=== PATIENT | female | born 1945 | race Caucasian/White ===

== ENCOUNTER 2017-04-17 16:35 | Outpatient (CLI) | payer MEDICARE, MEDICAID ==
--- NOTE | 2017-04-17 18:26 | SJPRAD ---
AP VIEW PELVIS: 04/17/17 HISTORY: Low back pain, pain in the sacroiliac joints. COMPARISON: None available. FINDINGS: There is no fracture or dislocation seen. Dense vascular calcifications seen in the iliac arteries a s well as femoral arteries. IMPRESSION: No acute osseous abnormality. POS: ERLIN
== END 2017-04-17 16:36 | disposition home or self-care (01) ==
LOC: MWLC RAD 16:35
PROVIDERS: ATTEND Family Medicine
DX: M54.5 Low back pain (principal)

== ENCOUNTER 2017-06-12 18:49 | Inpatient (IN) | payer MEDICARE, MEDICAID ==
[2017-06-12 19:47] LABS: #Basophils 0.1 thou/uL (0.0-0.2); #Lymphocytes 1.3 thou/uL (1.20-3.40); #Monocytes 0.5 thou/uL (0.11-0.59); #Neutrophils 7.7 thou/uL (1.40-6.50); %Basophils 0.6 % (0.0-1.0); %Eosinophils 0.4 % (0.0-10.0); %Lymphocytes 13.6 % (21.0-51.0); %Monocytes 4.8 % (0.0-10.0); Mean Platelet Volume 8.2 fL (7.4-10.4); Red Blood Cell (RBC) Count 2.97 mill/uL (4.20-5.40); White Blood Cell (WBC) Count 9.5 thou/uL (4.8-10.8)
[2017-06-12 19:56] LABS: ALT (SGPT) 7 U/L (8-55); AST (SGOT) 13 U/L (5-34); Alkaline Phosphatase 100 U/L (40-150); Anion Gap 15 mmol/L (10-20); BUN (Urea Nitrogen) 24 mg/dL (9.8-20.1); Bilirubin, Total 0.3 mg/dL (0.2-1.2); Calc. Creatinine Clearance 0 mL/min (70-130); Calcium 10.2 mg/dL (7.8-10.44); Carbon Dioxide 21 mmol/L (23-31); Chloride 101 mmol/L (98-107); Estimated GFR-MDRD 78; Globulin 3.5 g/dL (2.4-3.5); Protein, Total 7.7 g/dL (6.0-8.3)
[2017-06-12 20:01] LABS: Troponin I Less than 0.010 ng/mL (< 0.028)
[2017-06-12 20:05] LABS: Elliptocytes SLIGHT = 2-5 cells (100X) (0-1/hpf); Hypochromia MODERATE=16-30 cells (100X) (0-5/hpf); Microcytosis MODERATE=15-30 cells (100X) (0-5/hpf); Ovalocytes SLIGHT = 2-5 cells (100X) (0-1/hpf); Polychromasia MODERATE = 3-4 cells (100X) (0-2/hpf); Schistocytes SLIGHT = 2-5 cells (100X) (0-1/hpf); Target Cells SLIGHT = 2-5 cells (100X) (0-1/hpf)
[2017-06-12 20:06] LABS: Anisocytosis MODERATE=16-30 cells (100X) (0-5/hpf); Tear Drops SLIGHT = 2-5 cells (100X) (0-1/hpf)
[2017-06-12 21:05] LABS: Bilirubin Negative (Negative); Blood, Urine Negative (Negative); Glucose, Urine (Dipstick) Negative (Negative); Ketone, Urine Negative (Negative); Nitrite Negative (Negative); Protein, Urine (Dipstick) Trace mg/dL (Neg-Trace); Urobilinogen 0.2 mg/dL (0.2-1.0)
[2017-06-12 21:11] LABS: Bacteria/HPF None Seen HPF (None Seen); Hyaline Casts/LPF 0-3 HYALINE CAST LPF (0-3 Hyaline); RBC/HPF 0-3 HPF (0-3); Squamous Epithelial 0-3 HPF (0-3)
--- NOTE | 2017-06-12 21:31 | RAD ---
RADIOGRAPH CHEST 1 VIEW: Date: 06/12/17 Time: 7:24 p.m. HISTORY: 71-year-old female with dyspnea. COMPARISON: 09/05/15 FINDINGS: Again noted are the sternotomy wires and multiple surgical clips overlying the left cardiac shadow an d aortic knob. Again noted is the vascular stent at the proximal aspect, including origin, of the lef t subclavian artery. On the previous study, there were prominent interstitial markings. Now, these peña ve worsened, with diffuse interstitial infiltrates, at the mid and lower lung zones. No pneumothorax. No effacement of lateral costophrenic angles. IMPRESSION: 1. Interval worsening of mild interstitial densities. This may represent noncardiogenic pulmonar y edema, but other etiologies are possible. 2. Status post coronary artery bypass graft surgery is evidence for coronary atherosclerotic dis ease. JN [] POS: KATE
[2017-06-12 21:54] LABS: Iron 19 ug/dL (50-170)
[2017-06-13] MEDS ORDERED: Ondansetron HCl/PF 4 MG/2 ML Vial IVP PRN (01:04)
[2017-06-13] MEDS ORDERED: Acetaminophen 325 MG TAB PO PRN (01:04)
--- NOTE | 2017-06-13 01:04 | PDOC.EVN ---
Event Note - Event Note Event Note: [id number] H&P Dictated 1. Acute Anemia 2. UTI 3. HTN 4. H/O CAD 5. H/O HPL plan: see orders
[2017-06-13] MEDS ORDERED: Sodium Chloride 0.9% 1,000 ML IV SCH (01:15)
[2017-06-13 01:36] LABS: #Basophils 0.1 thou/uL (0.0-0.2); #Lymphocytes 1.4 thou/uL (1.20-3.40); #Monocytes 0.4 thou/uL (0.11-0.59); #Neutrophils 6.5 thou/uL (1.40-6.50); %Basophils 1.2 % (0.0-1.0); %Eosinophils 0.3 % (0.0-10.0); %Lymphocytes 16.5 % (21.0-51.0); %Monocytes 4.8 % (0.0-10.0); Hematocrit 22.5 % (36.0-47.0); Mean Platelet Volume 8.5 fL (7.4-10.4); Red Blood Cell (RBC) Count 3.04 mill/uL (4.20-5.40); White Blood Cell (WBC) Count 8.4 thou/uL (4.8-10.8)
[2017-06-13 02:42] VITALS: BMI 17.8
--- NOTE | 2017-06-13 02:44 | HP ---
DATE OF ADMISSION: 06/13/2017 CHIEF COMPLAINT: Dyspnea, fatigue. HISTORY OF PRESENT ILLNESS: Patient is a 71-year-old female with past medical history of hypertensio n, coronary artery disease, anemia, now came to the ER complaining of dyspnea and fatigue. Patient s aid she was feeling tired last few days, dyspnea got persisted and also the fatigue persisted. Today , she started having more trouble breathing that occurs even with minimal exertion that is why she ca me to the ER. Denies any chest pain. Denies any palpitations, denies any lower extremity swelling, denies any bleeding per rectum, denies any black stools. Patient says she takes aspirin and Plavix a t home. Denies any NSAID usage. PAST MEDICAL HISTORY: As per HPI. PAST SURGICAL HISTORY: History of lymphoma, for which she got chemotherapy done and other past surgi lilian histories reviewed. SOCIAL HISTORY: Positive for smoking, denies alcohol, denies any drugs. FAMILY HISTORY: Positive for cancer. REVIEW OF SYSTEMS: Constitutional: Denies any fever, denies any chills. Eyes: Denies any vision p roblems. Ears: Denies any hearing loss. Neck: Denies any neck pain. Cardiovascular: Denies any chest pain, denies any palpations. Respiratory: Positive for dyspnea. Cranial nerve system: Denie s syncope, denies lightheadedness. Psychiatric: Denies anxiety. Integument: Denies any rash. Gen itourinary: Denies dysuria. All other review of systems are reviewed and are negative. PHYSICAL EXAMINATION: CONSTITUTIONAL/VITAL SIGNS: At the time of H&P performed, blood pressure is 113/53, pulse ox 100%, h eart rate 91. GENERAL: The patient appears tired. Anterior nares patent. NECK: Supple, no JVD. CARDIOVASCULAR: S1, S2 present. Regular rate and rhythm. Positive for murmur, no rubs, no gallops. RESPIRATORY: No wheezing, no rhonchi. GASTROINTESTINAL: Abdomen is soft, nontender, no guarding, no organomegaly, no masses felt. MUSCULOSKELETAL: No edema. CRANIAL NERVE SYSTEM: Awake, follows commands. Strength intact. Sensory intact. PSYCHIATRIC: Mood appropriate at this time. INTEGUMENTARY: No obvious rashes seen. LABORATORY DATA: At the time of H&P perform white count 9.5, hemoglobin 5.9, platelet count is 311. BMP shows sodium 133, potassium 3.7, chloride 101, CO2 is 21, BUN of 24, creatinine 0.74, serum iron 19, ferritin 8.48. UA moderate leukocyte esterase, 11-20 wbc's. ASSESSMENT AND PLAN: The patient is a 71-year-old female. 1. Acute anemia plus iron deficiency. Plan to start patient on IV iron. Plan to type and cross and transfuse 2 units of packed RBCs. Need to outpatient GI workup. We will monitor the patient closel y. 2. Urinary tract infection. Plan to start the patient on IV Rocephin 1 gram q.24 hours. Plan to se nd urine for culture and sensitivity. 3. History of hypertension. Monitor blood pressures. Continue home blood pressure medications. 4. History of coronary artery disease. Continue home medications. 5. History of hyperlipidemia. Continue statins. The case was discussed in detail with the patient.
[2017-06-13 06:36] LABS: #Basophils 0.1 thou/uL (0.0-0.2); #Monocytes 0.5 thou/uL (0.11-0.59); #Neutrophils 6.2 thou/uL (1.40-6.50); %Basophils 1.2 % (0.0-1.0); %Eosinophils 0.5 % (0.0-10.0); %Monocytes 6.5 % (0.0-10.0); Hematocrit 25.6 % (36.0-47.0); Mean Platelet Volume 8.3 fL (7.4-10.4); Red Blood Cell (RBC) Count 3.35 mill/uL (4.20-5.40); White Blood Cell (WBC) Count 7.9 thou/uL (4.8-10.8)
[2017-06-13 06:49] LABS: Anion Gap 9 mmol/L (10-20); BUN (Urea Nitrogen) 15 mg/dL (9.8-20.1); Calc. Creatinine Clearance 69 mL/min (70-130); Calcium 9.1 mg/dL (7.8-10.44); Carbon Dioxide 24 mmol/L (23-31); Chloride 108 mmol/L (98-107); Estimated GFR-MDRD Greater than 90
[2017-06-13] MEDS ORDERED: Iron Sucrose Complex 200 MG in Sodium Chloride 0.9% 250 ML 250 ML IVPB SCH (09:00)
[2017-06-13] MEDS ORDERED: Famotidine/PF 20 mg/2ml Vial SLOW IVP SCH (09:00)
--- NOTE | 2017-06-13 10:20 | PDOC.PN ---
- Subjective Encounter Start Date: 06/13/17 Encounter Start Time: 10:18 Ms. Palacios was seen today in follow-up of acute anemia. She says she feels better after the blood transfusion. She is less short of breath. she denies chest pain,she has been up walking without difficulty. - Objective MAR Reviewed: Yes Vital Signs & Weight: Vital Signs (12 hours) Temp Pulse Resp BP Pulse Ox 06/13/17 09:57 98.6 F 74 18 100 06/13/17 07:10 98.6 F 74 18 126/59 L 100 06/13/17 04:00 98.3 F 82 16 132/60 100 06/13/17 01:49 99.6 F 80 18 153/67 H 97 Weight Weight 103 lb 14.4 oz I&O: 06/12/17 06/13/17 06/14/17 06:59 06:59 06:59 Intake Total 720 Balance 720 Result Diagrams: 06/13/17 06:17 06/13/17 06:17 Phys Exam - Physical Examination HEENT: PERRLA Respiratory: no wheezing, no rales, no rhonchi, clear to auscultation bilateral Cardiovascular: RRR, no significant murmur Gastrointestinal: soft, non-tender, positive bowel sounds Musculoskeletal: no edema Dx/Plan (1) Iron deficiency anemia due to chronic blood loss Code(s): D50.0 - IRON DEFICIENCY ANEMIA SECONDARY TO BLOOD LOSS (CHRONIC) Status: Acute (2) CAD (coronary artery disease) Code(s): I25.10 - ATHSCL HEART DISEASE OF [place] CORONARY ARTERY W/O ANG PCTRS Status: Chronic Qualifiers: Coronary Disease-Associated Artery/Lesion type: [place] artery Associated angina: without angina (3) Generalized weakness Code(s): R53.1 - WEAKNESS Status: Chronic - Plan * Acute on chronic anemia due to iron deficiency. She is feeling much better after transfusion. Her stool for occult blood was negative * She is stable for discharge home and Outpatient GI evaluation, and she may need hematology evaluation as well.
[2017-06-13 11:33] VITALS: BP 145/72; TEMP 97.7
[2017-06-13 12:43] LABS: #Basophils 0.1 thou/uL (0.0-0.2); #Eosinphils 0.1 thou/uL (0.0-0.7); #Lymphocytes 1.4 thou/uL (1.20-3.40); #Monocytes 0.5 thou/uL (0.11-0.59); #Neutrophils 9.7 thou/uL (1.40-6.50); %Basophils 0.9 % (0.0-1.0); %Eosinophils 0.6 % (0.0-10.0); %Lymphocytes 11.9 % (21.0-51.0); %Monocytes 4.1 % (0.0-10.0); Hematocrit 25.8 % (36.0-47.0); Mean Platelet Volume 8.2 fL (7.4-10.4); White Blood Cell (WBC) Count 11.7 thou/uL (4.8-10.8)
--- NOTE | 2017-06-13 15:51 | DIS ---
DATE OF ADMISSION: 06/12/2017 DATE OF DISCHARGE: 06/13/2017 PRIMARY CARE PHYSICIAN: Dr. Lucas. DISCHARGE DISPOSITION: Home. PRIMARY DISCHARGE DIAGNOSES: 1. Iron deficiency anemia. 2. History of lipoma. 3. Hypertension. DISCHARGE MEDICATIONS: Include iron sulfate 325 mg twice daily, losartan/hydrochlorothiazide 50/12.5 one tablet daily, Zocor 40 mg at bedtime, and Tylenol 325 mg q.4 hours as needed. CODE STATUS: FULL CODE. ALLERGIES: No known drug allergies. HOSPITAL COURSE: Ms. Palacios is a pleasant 71-year-old female who has a history of lymphoma as well as a history of hypertension as well as coronary artery disease. She was in her usual state of healt h until several days prior to admission when she began having fatigue and shortness of breath. She w as found to have severe anemia with a hemoglobin of 5.9. She was admitted and received 2 units of pa cked red blood cells as well as IV iron. She had occult blood done, which was negative. Stool for o ccult blood was negative. Her iron level was 19 and her ferritin was 8.48. TIBC was 455. After rec eiving the blood transfusion, she was feeling much better and since her stool guaiac was negative, th en she has had a history of anemia in the past. She will be discharged home and will need outpatient follow up with GI and possibly with Hematology as well. As she may have another reason for iron def iciency anemia or possibly even a combined form of anemia as well, this was explained to the patient as well as the patient's over the telephone.
== END 2017-06-13 13:27 | disposition home or self-care (01) | DRG 812 ==
LOC: ERS 18:49 → 2SE 21:25
PROVIDERS: ADMIT Internal Medicine; ATTEND Internal Medicine
PROC: 30233N1 Transfusion of Nonautologous Red Blood Cells into Peripheral Vein, Percutaneous Approach (ICD-10-PCS; principal; 2017-06-12)
DX: D50.9 Iron deficiency anemia, unspecified (principal); N39.0 Urinary tract infection, site not specified; E78.5 Hyperlipidemia, unspecified; I25.10 Atherosclerotic heart disease of native coronary artery without angina pectoris; Z85.72 Personal history of non-Hodgkin lymphomas; Z92.21 Personal history of antineoplastic chemotherapy; Z80.9 Family history of malignant neoplasm, unspecified
CPT/HCPCS: 36415; 36430; 71010; 80048; 80053; 81003; 81015; 82274; 82553; 82728; 83540; 83550; 84484; 85025; 86850; 86900; 86901; 87086; 93005; 94760; 99406; J1756; J7050; P9016; S0028

== ENCOUNTER 2017-07-29 05:43 | Day surgery (SDC) | payer MEDICARE, MEDICAID ==
[2017-07-28 12:00] VITALS: BMI 18.4
--- NOTE | 2017-07-29 02:54 | HP ---
SHORT STAY HISTORY AND PHYSICAL DATE OF ADMISSION: 07/29/2017 HISTORY OF PRESENT ILLNESS: This is a 72-year-old female with recurrent anemia and also oc cult GI bleeding. The patient also has symptoms of anemia and was transfused. The patient has had r emoval of multiple colon polyps in the past. dysphagia. The patient has no history of hematoch ezia or melena. Her anemia is microcytic and has been recurrent. The patient comes in for EGD and a colonoscopy because of the above reason. ALLERGIES: FLU VIRUS VACCINE, which is moderate in intensity. MEDICAL ILLNESSES: 1. COPD. 2. Hypertension. 3. Diabetes mellitus. 4. Coronary artery disease, status post stenting. 5. Past history of non-Hodgkin's lymphoma. She is in remission after chemotherapy. 6. Gastric ulcer-duodenal ulcer. 7. Colon polyp. PHYSICAL EXAMINATION: GENERAL: She is a very fragile looking female, appears very comfortable. VITAL SIGNS: Her pulse is 70, blood pressure 110/70. CARDIOVASCULAR SYSTEM: First and second heart sounds normal. LUNGS: Clear to auscultation. ABDOMEN: Soft to palpate. No organomegaly. No tenderness. No masses. ADMITTING DIAGNOSES: Anemia, microcytic. Anemia is recurrent. The patient has had duodenal ulcer, gastric ulcer, and colon polyps. PLAN: EGD and colonoscopy.
--- NOTE | 2017-07-29 08:43 | OP ---
DATE OF PROCEDURE: 07/29/2017 SURGEON: Diaz Sawant M.D. OPERATIVE PROCEDURE: Esophagogastroduodenoscopy with biopsy. PREOPERATIVE DIAGNOSIS: Anemia, occult gastrointestinal bleeding. POSTOPERATIVE DIAGNOSES: 1. Severe duodenitis. 2. Antral gastritis. PROCEDURE IN DETAIL: The patient was placed on her left lateral position and was given sedation by [facility] Anesthesia Department. A Pentax video gastroscope under direct vision was passed down the orophar ynx, past the gastroesophageal junction, into the stomach and subsequently into the descending duoden um. The duodenal bulb mucosa was markedly hyperemic and erythematous indicative of duodenitis. The descending duodenum, no pathology seen. The gastric antrum, gastric body, the mucosa was hyperemic a nd edematous. No ulcerations seen. The incisura angularis, no pathology seen. Retroflexion of the scope in the stomach showed no pathology in the fundus or cardia. The esophageal mucosa appeared nor mal. The stomach was decompressed and the scope removed. DISCHARGE PLANNING: This is a 72-year-old female with recurrent anemia and occult GI bleed ing. The patient came in for an EGD and colonoscopy. The EGD showed duodenitis and gastritis. [place] noscopy showed sessile polyps over the left colon. The patient did well post procedure, and is being discharged home. DISCHARGE INSTRUCTIONS: 1. The patient was advised to call me if she develops abdominal pain, hematochezia or fever. 2. In the absence of any of the above symptoms, the patient will come back to me in 2 weeks.
--- NOTE | 2017-07-29 09:00 | OP ---
DATE OF PROCEDURE: 07/29/2017 SURGEON: Diaz Sawant M.D. OPERATIVE PROCEDURE: Colonoscopy with polypectomy, colonoscopy with biopsy. PREOPERATIVE DIAGNOSES: 1. Anemia. 2. Occult gastrointestinal bleeding. 3. History of colon polyp. POSTOPERATIVE DIAGNOSES: 1. Mild, scattered diverticular disease all through the transverse colon. 2. Sessile polyp high sigmoid colon. 3. Sessile polyp low sigmoid colon x2. 4. Hemorrhoids. 5. Edematous hyperemic sigmoid mucosa. PROCEDURE IN DETAIL: The patient was placed on her left lateral position and was given sedation by t Anesthesia Department. A rectal exam was done before the scope was advanced into the rectum. The patient found to have hemorrhoids. No other lesions were felt. A Pentax video colonoscope was intr oduced into the rectum and advanced all the way into the cecum. The prep was excellent. The mucosa appeared normal except for sigmoid colon area. The appendiceal orifice, ileocecal valve, and cecum, no pathology seen. The ascending colon, hepatic flexure, transverse colon, and splenic flexure, no p athology seen. The descending colon, no pathology seen. The high sigmoid colon showed a sessile denise yp. The polyp was removed with snare cautery with good hemostasis. There were 2 more small polyps, 2 more sessile polyps in the lower sigmoid. Both were removed with snare cautery with good hemostasi s. The patient does have sigmoid diverticular disease. Rectum showed hemorrhoids.
[2017-07-29] MEDS ORDERED: Propofol 200 MG/20 ML VIAL ONE (15:20)
== END 2017-07-29 09:00 | disposition home or self-care (01) ==
LOC: SDC 05:43
PROVIDERS: ATTEND Internal Medicine Gastroenterology
PROC: 0DBN8ZX Excision of Sigmoid Colon, Via Natural or Artificial Opening Endoscopic, Diagnostic (ICD-10-PCS; principal; 2017-07-29)
PROC: 0DJ08ZZ Inspection of Upper Intestinal Tract, Via Natural or Artificial Opening Endoscopic (ICD-10-PCS; 2017-07-29)
DX: D12.5 Benign neoplasm of sigmoid colon (principal); K57.30 Diverticulosis of large intestine without perforation or abscess without bleeding; K64.9 Unspecified hemorrhoids; D50.0 Iron deficiency anemia secondary to blood loss (chronic); K29.80 Duodenitis without bleeding; K29.70 Gastritis, unspecified, without bleeding; J44.9 Chronic obstructive pulmonary disease, unspecified; I10 Essential (primary) hypertension; E11.9 Type 2 diabetes mellitus without complications; I25.10 Atherosclerotic heart disease of native coronary artery without angina pectoris; Z95.5 Presence of coronary angioplasty implant and graft; Z87.19 Personal history of other diseases of the digestive system; Z85.72 Personal history of non-Hodgkin lymphomas
CPT/HCPCS: 88305; J2704

== ENCOUNTER 2018-03-02 09:59 | Emergency (ER) | payer MEDICARE, MEDICAID ==
[2018-03-02 11:35] LABS: #Eosinphils 0.1 thou/uL (0.0-0.7); #Lymphocytes 1.8 thou/uL (1.20-3.40); #Monocytes 0.5 thou/uL (0.11-0.59); #Neutrophils 4.3 thou/uL (1.40-6.50); %Basophils 0.9 % (0.0-1.0); %Eosinophils 1.1 % (0.0-10.0); %Lymphocytes 26.8 % (21.0-51.0); %Monocytes 7.3 % (0.0-10.0); %Neutrophils 63.9 % (42.0-75.0); Hemoglobin 13.5 g/dL (12.0-16.0); Mean Corpuscular HGB CONC 34.2 g/dL (32.0-36.0); Mean Corpuscular Hemoglobin 32.8 pg (27.0-31.0); Mean Corpuscular Volume 96.1 fL (78.0-98.0); Mean Platelet Volume 5.9 fL (7.4-10.4); Platelet Count 335 thou/uL (130-400); RBC Distribution Width 12.3 % (11.5-14.5); Red Blood Cell (RBC) Count 4.11 mill/uL (4.20-5.40); White Blood Cell (WBC) Count 6.7 thou/uL (4.8-10.8)
[2018-03-02 11:36] LABS: #Basophils 0.1 thou/uL (0.0-0.2)
[2018-03-02 12:10] LABS: CKMB 1.5 ng/mL (0-6.6); Troponin I Less than 0.010 ng/mL (< 0.028)
[2018-03-02 12:14] LABS: ALT (SGPT) 13 U/L (8-55); AST (SGOT) 17 U/L (5-34); Albumin 4.5 g/dL (3.4-4.8); Alkaline Phosphatase 86 U/L (40-150); Anion Gap 15 mmol/L (10-20); BUN (Urea Nitrogen) 10 mg/dL (9.8-20.1); Bilirubin, Total 0.3 mg/dL (0.2-1.2); CK (CPK) 46 U/L (29-168); Calc. Creatinine Clearance 0 mL/min (70-130); Calcium 10.7 mg/dL (7.8-10.44); Carbon Dioxide 24 mmol/L (23-31); Chloride 99 mmol/L (98-107); Estimated GFR-MDRD 90; Globulin 3.7 g/dL (2.4-3.5); Glucose 97 mg/dL (80-115); Lipase 27 U/L (8-78); Potassium 4.3 mmol/L (3.5-5.1); Protein, Total 8.2 g/dL (6.0-8.3); Sodium 134 mmol/L (136-145)
--- NOTE | 2018-03-02 12:51 | CT ---
CT BRAIN NONCONTRAST: HISTORY: 72-year-old female with vertigo. FINDINGS: There is no midline shift or any other mass effect. There is no evidence of acute intracranial hemor rhage, obstructive hydrocephalus, or extraaxial fluid collection. The calvarium is intact. There is diffuse parenchymal volume loss. There are low attenuation areas in the white matter. These are no nspecific, but in a patient of this age, they are probably chronic ischemic white matter changes due to microvascular atherosclerosis. There are multiple small old infarctions involving cortex and subco rtical white matter, in an array, including at the left upper paramedian frontal and parietal lobes, and left lower posterior parietal region. The arrangement is suggestive of old watershed zone infarct ions between the left middle cerebral artery territory and left anterior cerebral artery territory. IMPRESSION: 1) No acute intracranial findings. 2) Involutional changes and chronic ischemic white matter changes. 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 karma POS: KATE
[2018-03-02] MEDS ORDERED: Meclizine HCl 25 MG TAB ONE (13:23)
== END 2018-03-02 13:08 | disposition home or self-care (01) ==
LOC: ERS 09:59
DX: R42 Dizziness and giddiness (principal); E78.5 Hyperlipidemia, unspecified; I10 Essential (primary) hypertension; J44.9 Chronic obstructive pulmonary disease, unspecified; F17.210 Nicotine dependence, cigarettes, uncomplicated; Z79.899 Other long term (current) drug therapy
CPT/HCPCS: 70450; 80053; 82553; 83690; 84484; 85025; 93005

== ENCOUNTER 2018-06-13 14:12 | Observation (INO) | payer MEDICARE, MEDICAID ==
[2018-06-13 14:40] LABS: #Basophils 0.1 thou/uL (0.0-0.2); #Eosinphils 0.2 thou/uL (0.0-0.7); #Lymphocytes 1.9 thou/uL (1.20-3.40); #Monocytes 0.4 thou/uL (0.11-0.59); #Neutrophils 4.4 thou/uL (1.40-6.50); %Eosinophils 2.3 % (0.0-10.0); %Lymphocytes 27.5 % (21.0-51.0); %Monocytes 5.5 % (0.0-10.0); %Neutrophils 63.7 % (42.0-75.0); Hemoglobin 12.2 g/dL (12.0-16.0); Mean Corpuscular HGB CONC 33.8 g/dL (32.0-36.0); Mean Corpuscular Hemoglobin 32.3 pg (27.0-31.0); Mean Corpuscular Volume 95.8 fL (78.0-98.0); Mean Platelet Volume 5.9 fL (7.4-10.4); Platelet Count 375 thou/uL (130-400); RBC Distribution Width 13.5 % (11.5-14.5); Red Blood Cell (RBC) Count 3.77 mill/uL (4.20-5.40); White Blood Cell (WBC) Count 6.9 thou/uL (4.8-10.8)
[2018-06-13 15:03] LABS: ALT (SGPT) 11 U/L (8-55); AST (SGOT) 15 U/L (5-34); Albumin 4.5 g/dL (3.4-4.8); Alkaline Phosphatase 101 U/L (40-150); Anion Gap 14 mmol/L (10-20); BUN (Urea Nitrogen) 13 mg/dL (9.8-20.1); Bilirubin, Total 0.2 mg/dL (0.2-1.2); CK (CPK) 44 U/L (29-168); Calc. Creatinine Clearance 0 mL/min (70-130); Calcium 10.9 mg/dL (7.8-10.44); Carbon Dioxide 28 mmol/L (23-31); Chloride 99 mmol/L (98-107); Estimated GFR-MDRD 84; Globulin 3.8 g/dL (2.4-3.5); Glucose 127 mg/dL (80-115); Potassium 3.5 mmol/L (3.5-5.1); Protein, Total 8.3 g/dL (6.0-8.3); Sodium 137 mmol/L (136-145)
--- NOTE | 2018-06-13 15:49 | RAD ---
RADIOGRAPH CHEST 1 VIEW: HISTORY: A 72-year-old female with influenza and generalized weakness. FINDINGS: There are no air space densities, pulmonary edema, pneumothorax, or cardiomegaly. The lateral costop hrenic angles are sharp. There are sternotomy wires. Multiple surgical clips along the left mediast inal and upper cardiac border. Vertically oriented vascular stent at left upper mediastinum. IMPRESSION: 1. No acute cardiopulmonary findings. 2. Status post coronary artery bypass graft surgery is evidence for coronary atherosclerotic disease . karma [] POS: KATE
[2018-06-13 16:08] LABS: Bilirubin Negative (Negative); Blood, Urine Negative (Negative); Clarity CLOUDY (Clear); Glucose, Urine (Dipstick) Negative (Negative); Leukocyte Moderate (Negative); Nitrite Negative (Negative); Protein, Urine (Dipstick) Negative (Neg-Trace); Specific Gravity, Urine 1.013 (1.002-1.036); pH, Urine 6.5 (5.0-9.0)
[2018-06-13 16:09] LABS: Bacteria/HPF None Seen HPF (None Seen); Hyaline Casts/LPF 0-3 HYALINE CAST LPF (0-3 Hyaline); Pathc Cast-AUWi Flag 0.29 (0-2.49); RBC/HPF 0-3 HPF (0-3); Squamous Epithelial 0-3 HPF (0-3)
[2018-06-13] MEDS ORDERED: cefTRIAXone\\ROCEPHIN 2 GM VIAL ONE (16:44)
[2018-06-13] MEDS ORDERED: Ondansetron ODT 4 MG TAB SL PRN (18:08)
[2018-06-13] MEDS ORDERED: Ondansetron PF 4 MG/2 ML Vial IVP PRN (18:08)
[2018-06-13 18:09] LABS: Troponin I Less than 0.010 ng/mL (< 0.028)
[2018-06-13 18:11] VITALS: BMI 18.7
[2018-06-13] MEDS ORDERED: Acetaminophen 325 MG TAB PO PRN (18:46)
[2018-06-13] MEDS ORDERED: Senokot S 8.6-50 MG TAB PO PRN (18:46)
[2018-06-13] MEDS ORDERED: Guaifenesin DM 100-10/5 ML UDCUP PO PRN (18:46)
[2018-06-13] MEDS: Sodium Chloride 0.9% 1,000 ML IV SCH (19:17)
--- NOTE | 2018-06-13 19:26 | HP ---
REASON FOR ADMISSION: Hypotension with generalized weakness. HISTORY OF PRESENTING ILLNESS: The patient gives history of feeling weak and could hardly walk. She was scared of falling at home. She says she was diagnosed of flu on the 6th of this month and took Tamiflu for 5 days. No complaints of diarrhea , nausea, or vomiting. No complaints of chest pain or shortness of breath. The patient feels like her feet are glued to the ground and she cannot really bend her knees as before while walking, but on the bed, she is able to bend them now. No complaints of fever. No complaints of urinary urgency or frequency. PAST MEDICAL AND SURGICAL HISTORY: Coronary artery disease with prior bypass done for five vessels and multiple stents. The bypass was done 21 years back. She follows up with Dr. López. She last saw Rene Rutherford's PA last month, hypertension, dyslipidemia, COPD, history of Hodgkin lymphoma in remission from more than 10 years now. CURRENT MEDICATION: 1. Aspirin 81 mg p.o. daily. 2. Plavix 75 mg p.o. daily. 3. Losartan with hydrochlorothiazide 50/12.5 mg p.o. daily. 4. Crestor 20 mg p.o. daily. 5. Zetia 10 mg p.o. daily. ALLERGIES: NO KNOWN DRUG ALLERGIES. PERSONAL HISTORY: Smokes half pack a day. Does not abuse alcohol or drugs. Lives with her and is for nearly 45 years. FAMILY HISTORY: Mother of unknown cancer at the age of 67 years. Father when she was 10 or 11 years old and does not know the real cause. Code status is full. Power of regulatory attorney is her . REVIEW OF SYSTEMS: CONSTITUTIONAL: Negative for weight loss or gain, ability to conduct usual activities. SKIN: Negative for rash, itching. EYES: Negative for double vision, pain. ENT/MOUTH: Negative for nose bleeding, neck stiffness, pain, tenderness. CARDIOVASCULAR: Negative for palpitations, dyspnea on exertion, orthopnea. RESPIRATORY: Negative for shortness of breath, wheezing, cough, hemoptysis, fever or night sweats. GASTROINTESTINAL: Negative for poor appetite, abdominal pain, heartburn, nausea , vomiting, constipation, or diarrhea. GENITOURINARY: Negative for urgency, frequency, dysuria, nocturia. MUSCULOSKELETAL: Negative for pain, swelling. NEUROLOGIC/PSYCHIATRIC: Negative for anxiety, depression. ALLERGY/IMMUNOLOGIC: Negative for skin rash, bleeding tendency. PHYSICAL EXAMINATION: GENERAL: The patient is a 72-year-old female, who is currently not in any acute distress. On arrival, blood pressure was 90/60, currently 134/70, pulse 103 per minute, respiratory rate 21 per minute, temperature 98.4 degrees Fahrenheit, saturating 100% on room air. NECK: Supple. No elevated JVD. EYES: Extraocular muscles intact. Pupils reacting to light. Oral cavity, mucous membranes are moist. No exudates or congestion. CARDIOVASCULAR: S1, S2 heard. Regular rhythm. RESPIRATORY: Air entry, 1+ bilateral scattered rhonchi, plus no wheezes or rales. ABDOMEN: Soft. Bowel sounds heard. No tenderness, rigidity, or guarding. EXTREMITIES: No peripheral edema or calf tenderness. VASCULAR SYSTEM: Peripheral pulses 1+ bilateral. No ischemic ulcerations or gangrene. CENTRAL NERVOUS SYSTEM: No gross focal deficits noted. The patient is alert, awake, and oriented. PSYCHIATRIC SYSTEM: The patient's mood is euthymic. No hallucinations or delusions. LABORATORY DATA: White count of 6.9, H and H of 12 and 36, platelet count 375, MCV is 95 with 63% neutrophils. Electrolytes are stable. BUN 13, creatinine 0.6, serum glucose 127. Liver enzymes within normal limits. Two sets of troponin are negative. CK level is 44. TSH 1.26. Albumin is 4.5. UA shows moderate leukocyte esterase with 7 to 10 wbc's and no bacteria were seen. Chest x-ray done shows no acute infiltrate. EKG done shows sinus tach at 113 beats per minute. There is an ST depression seen in inferolateral wall. CLINICAL IMPRESSION AND PLAN: The patient will be under observation on telemetry for an episode of hypotension, possible urinary tract infection, generalized weakness with recent viral illness. Urine cultures have been obtained in the ER and we will place her on Levaquin for now. We will continue her aspirin, Plavix, Zetia, and Crestor as before. Her losartan with hydrochlorothiazide will be held for now. She will be on Levaquin for urinary tract infection. We will obtain a viral PCR. She will be gently hydrated with normal saline at 60 mL per hour for a total of 2 L. PT/OT evaluations will be requested and if she is able to ambulate, the patient can be discharged safely home tomorrow. Job ID: [id number] MTDD
[2018-06-13] MEDS ORDERED: Nicotine 14 MG PATCH TD SCH (20:00)
[2018-06-13] MEDS: Famotidine 20 MG TAB PO SCH (20:15)
[2018-06-13] MEDS ORDERED: Rosuvastatin 20 MG TAB PO SCH (21:00)
[2018-06-13 21:04] LABS: Troponin I Less than 0.010 ng/mL (< 0.028)
[2018-06-14 05:08] LABS: #Basophils 0.1 thou/uL (0.0-0.2); #Eosinphils 0.2 thou/uL (0.0-0.7); #Lymphocytes 1.3 thou/uL (1.20-3.40); #Monocytes 0.6 thou/uL (0.11-0.59); #Neutrophils 3.4 thou/uL (1.40-6.50); %Basophils 1.1 % (0.0-1.0); %Eosinophils 3.2 % (0.0-10.0); %Lymphocytes 23.9 % (21.0-51.0); %Monocytes 11.2 % (0.0-10.0); %Neutrophils 60.6 % (42.0-75.0); Hemoglobin 9.3 g/dL (12.0-16.0); Mean Corpuscular HGB CONC 32.9 g/dL (32.0-36.0); Mean Corpuscular Hemoglobin 31.6 pg (27.0-31.0); Mean Corpuscular Volume 96.1 fL (78.0-98.0); Platelet Count 281 thou/uL (130-400); RBC Distribution Width 13.4 % (11.5-14.5); Red Blood Cell (RBC) Count 2.94 mill/uL (4.20-5.40); White Blood Cell (WBC) Count 5.6 thou/uL (4.8-10.8)
[2018-06-14 05:32] LABS: Anion Gap 11 mmol/L (10-20); BUN (Urea Nitrogen) 14 mg/dL (9.8-20.1); Calc. Creatinine Clearance 63 mL/min (70-130); Calcium 9.2 mg/dL (7.8-10.44); Carbon Dioxide 23 mmol/L (23-31); Chloride 106 mmol/L (98-107); Estimated GFR-MDRD 90; Glucose 79 mg/dL (80-115); Potassium 3.6 mmol/L (3.5-5.1); Sodium 136 mmol/L (136-145)
[2018-06-14] MEDS: Famotidine 20 MG TAB PO SCH (08:43)
[2018-06-14] MEDS ORDERED: Ezetimibe 10 MG TAB PO SCH (09:00)
[2018-06-14] MEDS ORDERED: Enoxaparin Sodium 40 MG/0.4 ML SYRINGE SC SCH (09:00)
[2018-06-14] MEDS ORDERED: Clopidogrel Bisulfate 75 MG TAB PO SCH (09:00)
[2018-06-14] MEDS ORDERED: Aspirin 81 mg Enteric Coated Tablet PO SCH (09:00)
[2018-06-14] MEDS: Sodium Chloride 0.9% 1,000 ML IV SCH (12:08)
--- NOTE | 2018-06-14 12:31 | PDOC.PN ---
- Subjective Encounter Start Date: 06/14/18 Encounter Start Time: 08:45 Subjective: no chest pain or sob -: feels better - Objective Resuscitation Status - Order Detail: 06/13/18 18:44 Resuscitation Status Routine Resuscitation Status: FULL: Full Resuscitation MAR Reviewed: Yes Vital Signs & Weight: Vital Signs (12 hours) Temp Pulse Pulse Pulse Resp BP BP 06/14/18 11:56 98.2 F 86 16 06/14/18 08:56 70 107 H 98/50 L 117/88 06/14/18 07:11 97.6 F 95 16 06/14/18 04:24 98.3 F 90 18 BP Pulse Ox 06/14/18 11:56 112/58 L 98 06/14/18 08:56 06/14/18 07:11 124/55 L 97 06/14/18 04:24 105/52 L 96 Weight Admit Weight 109 lb Weight 109 lb I&O: 06/13/18 06/14/18 06/15/18 06:59 06:59 06:59 Intake Total 100 Output Total 1850 500 Balance -1750 -500 Result Diagrams: 06/14/18 04:34 06/14/18 04:34 Phys Exam - Physical Examination HEENT: PERRLA, moist MMs Neck: no JVD, supple Respiratory: no wheezing, no rales Cardiovascular: RRR, no significant murmur Gastrointestinal: soft, non-tender, positive bowel sounds Musculoskeletal: no edema, pulses present Neurological: non-focal, moves all 4 limbs Psychiatric: normal affect, A&O x 3 Dx/Plan (1) Hypotension Status: Acute Qualifiers: Hypotension type: unspecified hypotension type Qualified Code(s): I95.9 - Hypotension, unspecified (2) Chest pain Code(s): R07.9 - CHEST PAIN, UNSPECIFIED Status: Acute Qualifiers: Chest pain type: unspecified Qualified Code(s): R07.9 - Chest pain, unspecified (3) Carotid arterial disease Code(s): I77.9 - DISORDER OF ARTERIES AND ARTERIOLES, UNSPECIFIED Status: Chronic Qualifiers: Carotid artery disease type: unspecified (4) Anemia Code(s): D64.9 - ANEMIA, UNSPECIFIED Status: Chronic Qualifiers: Anemia type: unspecified type Qualified Code(s): D64.9 - Anemia, unspecified (5) CAD (coronary artery disease) Code(s): I25.10 - ATHSCL HEART DISEASE OF [place] CORONARY ARTERY W/O ANG PCTRS Status: Chronic Qualifiers: Coronary Disease-Associated Artery/Lesion type: bypass graft [place] vs. transplanted heart: [place] heart Associated angina: with stable angina Qualified Code(s): I25.708 - Atherosclerosis of coronary artery bypass graft(s) , unspecified, with other forms of angina pectoris (6) COPD (chronic obstructive pulmonary disease) Status: Chronic Qualifiers: COPD type: chronic bronchitis Chronic bronchitis type: simple Qualified Code(s): J41.0 - Simple chronic bronchitis (7) Generalized weakness Code(s): R53.1 - WEAKNESS Status: Chronic (8) PVD (peripheral vascular disease) Code(s): I73.9 - PERIPHERAL VASCULAR DISEASE, UNSPECIFIED Status: Chronic - Plan is on asp, plavix, crestor -: levaquin for uti, gentle iv fluids -: has 2.1 sec pause on telemetry, she had this on prior admission here -: await cardio opinion, may dc if cleared by cardiology -: prior ef of 45% 07/2015, stress test 08/14 ant wall scar no rev isch * . Review of Systems - Medications/Allergies Allergies/Adverse Reactions: Allergies Allergy/AdvReac Type Severity Reaction Status Date / Time No Known Allergies Allergy Verified 06/13/18 18:06 Medications: Current Medications Acetaminophen (Tylenol) 650 mg PO Q4H PRN PRN Reason: Headache/Fever/Mild Pain (1-3) Last Admin: 06/13/18 21:53 Dose: 650 mg Albuterol/Ipratropium (Duoneb) 3 ml NEB Q6H PRN PRN Reason: SOB &/or Wheezing Aspirin (Ecotrin) 81 mg PO DAILY [facility] Last Admin: 06/14/18 08:43 Dose: 81 mg Clopidogrel Bisulfate (Plavix) 75 mg PO DAILY [facility] Last Admin: 06/14/18 08:43 Dose: 75 mg Ezetimibe (Zetia) 10 mg PO DAILY [facility] Last Admin: 06/14/18 08:44 Dose: 10 mg Enoxaparin Sodium (Lovenox) 40 mg SC 0900 [facility] Last Admin: 06/14/18 08:43 Dose: 40 mg Famotidine (Pepcid) 20 mg PO BID [facility] Last Admin: 06/14/18 08:43 Dose: 20 mg Guaifenesin/Dextromethorphan (Robitussin Dm) 15 ml PO Q4H PRN PRN Reason: Cough Sodium Chloride (Normal Saline 0.9%) 1,000 mls @ 60 mls/hr IV .[id number] [facility] Stop: 06/15/18 04:05 Last Admin: 06/14/18 12:08 Dose: 1,000 mls Levofloxacin 500 mg/ Device 100 mls @ 100 mls/hr IVPB Q24HR [facility] Last Admin: 06/13/18 19:17 Dose: 100 mls Nicotine (Nicoderm Patch) 14 mg TD Q24HR [facility] Last Admin: 06/13/18 19:17 Dose: 14 mg Rosuvastatin Calcium (Crestor) 20 mg PO HS [facility] Last Admin: 06/13/18 20:15 Dose: 20 mg Senna/Docusate Sodium (Senokot S) 2 tab PO BID PRN PRN Reason: Constipation Sodium Chloride (Flush - Normal Saline) 10 ml IVF Q12HR [facility] Last Admin: 06/14/18 08:44 Dose: Not Given Sodium Chloride (Flush - Normal Saline) 10 ml IVF PRN PRN PRN Reason: Saline Flush
[2018-06-14 16:07] VITALS: BP 107/53; TEMP 98.9
--- NOTE | 2018-06-15 00:28 | CON ---
DATE OF CONSULTATION: HISTORY OF PRESENT ILLNESS: Bria Palacios is a 72-year-old white female, is a long-time patient of Dr. López. She had bypass surgery here at [place] in 1978. She has undergone close followup by Dr. López. She states that she has multiple stents placed in her coronary arteries and bypass grafts. Also in March and April, she underwent stenting of both carotid arteries. She now presents complaining of generalized weakness and felt that she might fall at home. She was diagnosed with influenza on the 6th of this month, took Tamiflu. She denied any chest pain or shortness of breath, just feeling of being weak and feeling as if she might fall. On arrival, her blood pressure was 90/60, pulse of 103. She has been hydrated. She denies any melena. PAST MEDICAL HISTORY: Coronary artery disease, carotid artery disease, hyperlipidemia, COPD, history of Hodgkin lymphoma in remission. MEDICATIONS: 1. Aspirin 81 daily. 2. Plavix 75 daily. 3. Losartan/hydrochlorothiazide 50/12.5 daily. 4. Crestor 20 daily. 5. Zetia 10 daily. ALLERGIES: NONE. OPERATIONS: CABG x5 with apparently 3 of the 5 grafts occluded, iliac artery stent, left subclavian artery stent, and stents in both carotids. SOCIAL HISTORY: She continues to smoke one-half pack per day. FAMILY HISTORY: Negative for coronary artery disease. PHYSICAL EXAMINATION: VITAL SIGNS: Blood pressure 107/53, pulse of 70. HEENT: PERRL. NECK: Supple. CHEST: Clear. CARDIAC EXAMINATION: S1 and S2 normal without any S3, S4, or murmurs. Carotid upstrokes are normal with bilateral carotid artery bruits. ABDOMEN: Normal bowel sounds without tenderness or organomegaly. EXTREMITIES: Revealed no clubbing, cyanosis, or edema. NEUROLOGIC: Grossly intact. LABORATORY DATA: EKG revealed sinus tachycardia with a rate of 113 per minute with first-degree AV block, nonspecific ST-segment changes. Hemoglobin has dropped from 12.2 to 9.3 over the night, hematocrit 36.1 down to 28.2. White count 5600, platelets 281,000. Sodium 136, potassium 3.6, chloride 106, carbon dioxide 23, BUN 14, creatinine 0.65. Cardiac enzymes were unremarkable. TSH is normal. IMPRESSION: 1. Paroxysmal atrial tachycardia during sleep. When she converts one time, she has a 2.1 second pause. This is a relatively slow paroxysmal atrial tachycardia with the rate of 110 to 120. 2. Fatigue and weakness, probably secondary to hypotension. 3. Drop in hemoglobin, probably from rehydration. 4. Hypercholesterolemia. 5. Hypertension. 6. Chronic obstructive pulmonary disease. 7. The patient continues to smoke. 8. History of Hodgkin lymphoma. PLAN: Ms. Palacios is relatively asymptomatic in terms of lightheadedness, dizziness, or palpitations in regard to her paroxysmal atrial tachycardia. Overall, I do not feel that any specific treatment is warranted for this at this time. All these episodes occur while she is asleep, although she denies any history of snoring at night. It may be useful to discuss this further with her when he is here. Job ID: [id number]
== END 2018-06-14 18:24 | disposition home or self-care (01) ==
LOC: ERS 14:12 → 2SW 17:41
PROVIDERS: ADMIT Internal Medicine; ATTEND Internal Medicine
DX: I95.9 Hypotension, unspecified (principal); R53.1 Weakness; N39.0 Urinary tract infection, site not specified; I25.10 Atherosclerotic heart disease of native coronary artery without angina pectoris; I10 Essential (primary) hypertension; I73.9 Peripheral vascular disease, unspecified; E78.00 Pure hypercholesterolemia, unspecified; J44.9 Chronic obstructive pulmonary disease, unspecified; C85.90 Non-Hodgkin lymphoma, unspecified, unspecified site; D64.9 Anemia, unspecified; F17.210 Nicotine dependence, cigarettes, uncomplicated; Z95.1 Presence of aortocoronary bypass graft; Z95.5 Presence of coronary angioplasty implant and graft; Z79.82 Long term (current) use of aspirin; Z79.02 Long term (current) use of antithrombotics/antiplatelets; Z79.2 Long term (current) use of antibiotics; Z79.899 Other long term (current) drug therapy
CPT/HCPCS: 71045; 80048; 82550; 84484 ×2; 85025; 87077; 87086; 87186; 87633; 93005; 96361 ×3; 96365; 96367; 96372; 97116; 97139 ×4; 97530; 99285; G0378 ×2; G8978; G8979; G8980; G8987; G8988; G8989; 36415; 80053; 81003; 81015; 84443; 96360; J0696; J1650; J1956

== ENCOUNTER 2018-08-26 01:13 | Observation (INO) | payer MEDICARE, MEDICAID ==
[2018-08-26 01:44] LABS: #Basophils 0.1 thou/uL (0.0-0.2); #Eosinphils 0.2 thou/uL (0.0-0.7); #Lymphocytes 2.1 thou/uL (1.20-3.40); #Monocytes 0.6 thou/uL (0.11-0.59); #Neutrophils 6.2 thou/uL (1.40-6.50); %Basophils 0.6 % (0.0-1.0); %Lymphocytes 23.1 % (21.0-51.0); %Monocytes 6.9 % (0.0-10.0); %Neutrophils 67.5 % (42.0-75.0); Hemoglobin 7.2 g/dL (12.0-16.0); Mean Corpuscular HGB CONC 30.6 g/dL (32.0-36.0); Mean Corpuscular Hemoglobin 25.1 pg (27.0-31.0); Mean Corpuscular Volume 82.1 fL (78.0-98.0); Mean Platelet Volume 6.6 fL (7.4-10.4); Platelet Count 378 thou/uL (130-400); Red Blood Cell (RBC) Count 2.86 mill/uL (4.20-5.40); White Blood Cell (WBC) Count 9.2 thou/uL (4.8-10.8)
[2018-08-26 02:06] LABS: ALT (SGPT) 26 U/L (8-55); AST (SGOT) 72 U/L (5-34); Albumin 3.5 g/dL (3.4-4.8); Alkaline Phosphatase 110 U/L (40-150); Anion Gap 15 mmol/L (10-20); BUN (Urea Nitrogen) 12 mg/dL (9.8-20.1); Bilirubin, Total Less than 0.2 mg/dL (0.2-1.2); Calc. Creatinine Clearance 0 mL/min (70-130); Calcium 9.8 mg/dL (7.8-10.44); Carbon Dioxide 20 mmol/L (23-31); Chloride 104 mmol/L (98-107); Estimated GFR-MDRD Greater than 90; Globulin 2.9 g/dL (2.4-3.5); Glucose 128 mg/dL (83-110); Potassium 3.5 mmol/L (3.5-5.1); Protein, Total 6.4 g/dL (6.0-8.3); Sodium 135 mmol/L (136-145)
[2018-08-26 02:27] LABS: Prothrombin Time 13.7 SEC (12.0-14.7)
[2018-08-26 05:18] LABS: Troponin I Less than 0.010 ng/mL (< 0.028)
--- NOTE | 2018-08-26 07:20 | RAD ---
CHEST ONE VIEW: Indication: Chest pain. Comparison: 06-13-18 FINDINGS: Chronic lung change is stable. Post CABG change stable. Mild cardiomegaly is stable. No pleural effus ion or pneumothorax is evident. Chronic osseous changes are stable. IMPRESSION: No acute abnormality. POS: [facility]
[2018-08-26 08:03] LABS: Reticulocyte Count 2.1 % (0.5-1.5)
[2018-08-26 08:11] LABS: Hemoglobin 7.2 g/dL (12.0-16.0); Mean Corpuscular HGB CONC 31.3 g/dL (32.0-36.0); Mean Corpuscular Hemoglobin 24.3 pg (27.0-31.0); Mean Corpuscular Volume 77.7 fL (78.0-98.0); Mean Platelet Volume 6.4 fL (7.4-10.4); Platelet Count 323 thou/uL (130-400); RBC Distribution Width 15.9 % (11.5-14.5); Red Blood Cell (RBC) Count 2.95 mill/uL (4.20-5.40); White Blood Cell (WBC) Count 7.1 thou/uL (4.8-10.8)
[2018-08-26 08:21] LABS: Troponin I Less than 0.010 ng/mL (< 0.028)
[2018-08-26 08:33] LABS: Band 6 % (5-11); Hypochromia MODERATE=16-30 cells (100X) (0-5/hpf); Iron 24 ug/dL (50-170); Iron Binding Capacity, Total 336 mcg/dL (265-497); Lymphocytes 16 % (21-51); MDiff Complete? YES; Microcytosis SLIGHT = 6-15 cells (100X) (0-5/hpf); Monocytes 6 % (0-10); Myelocyte 1 % (0-0); Neutrophil 71 % (42-75); Ovalocytes SLIGHT = 2-5 cells (100X) (0-1/hpf); Platelet Morphology Comment Appears Adequate; Polychromasia SLIGHT = 2-3 cells (100X) (0-2/hpf); Reflex for Review?? YES
[2018-08-26 08:46] LABS: Folate (Folic Acid) 12.2 ng/mL (7.0-31.4)
--- NOTE | 2018-08-27 07:08 | SS ---
DATE OF ADMISSION: 08/26/2018 DATE OF DISCHARGE: 08/26/2018 DISCHARGE DISPOSITION: Home. FOLLOWUP: 1. Follow up with primary care physician, Dr. Lucas in 1 week. 2. Follow up with Oncology Service, Dr. Leon, on 02 September 2018, at 2 p.m. 3. Follow up with Dr. López in 1 to 2 weeks. 4. Follow up with Dr. Sawant in 2 to 3 days for repeat hemoglobin check. ALLERGIES: NO KNOWN DRUG ALLERGIES. CHIEF COMPLAINT: Generalized weakness and chest discomfort. HISTORY OF PRESENT ILLNESS: The patient is a 73-year-old female with chronic anemia, peptic ulcer disease, coronary artery disease, status post CABG, presented to the emergency room with chest discomfort. The chest discomfort started around 1 a.m. while she was at home. It was moderate to severe in intensity, substernal without any aggravating or relieving factor. She took 2 sublingual nitroglycerin after which her pain improved. When she arrived to the emergency room, her systolic blood pressure was 69/39, that improved with IV fluids. She was also found to have significant anemia with hemoglobin 7.2. She denies any nausea, vomiting, diaphoresis, melena, hematochezia, or hematemesis. She is currently on aspirin and Plavix on a daily basis. Her EKG in the emergency room showed sinus rhythm with nonspecific ST-T wave changes. PAST MEDICAL HISTORY: 1. Coronary artery disease, status post CABG, followed by Dr. López. 2. History of Hodgkin lymphoma more than 10 years ago. 3. COPD. 4. Dyslipidemia. 5. Hypertension. 6. Carotid artery disease. 7. Peripheral vascular disease. PAST SURGICAL HISTORY: 1. Coronary artery bypass grafting in 1978. 2. Coronary artery stent placement. 3. Iliac artery stent. 4. Left subclavian artery stent. 5. Carotid artery stents. ALLERGIES: NO KNOWN DRUG ALLERGIES. CURRENT HOME MEDICATIONS: The patient is on, 1. Aspirin 81 mg daily. 2. Plavix 75 mg daily. She is unable to recall any other home medications. SOCIAL HISTORY: The patient currently lives at home with her . She continues to smoke up to half pack a day. She is full code, makes her own decision with the help of her . FAMILY HISTORY: Negative for heart disease. REVIEW OF SYSTEMS: All other review of systems was reviewed and was found negative. PHYSICAL EXAMINATION: VITAL SIGNS: As discussed above. Her blood pressure currently is in systolic 120s. GENERAL: A 73-year-old female, in no apparent distress. LUNGS: Clear to auscultation bilaterally. No wheezing, rales, or rhonchi. NECK: Supple. No JVD. No carotid bruit. HEENT: Head is atraumatic, normocephalic. Sclerae anicteric. Pale mucous membranes. No oral lesion. HEART: S1 and S2 present. Regular rate and rhythm. No reproducible chest wall tenderness. 2/6 systolic murmur over the mitral area. ABDOMEN: Soft and nontender. Bowel sounds present. EXTREMITIES: No edema or calf tenderness. NEUROLOGIC: Grossly nonfocal, moves all 4 extremities. PSYCHIATRY: Alert, awake, and oriented x3. SKIN: Warm and dry. LYMPH NODES: No palpable lymph nodes in the neck. PERIPHERAL VASCULAR: Radial pulses palpable bilaterally. MUSCULOSKELETAL: No joint swelling or tenderness. LABORATORY DATA: 1. Hemoglobin 7.2, reticulocyte count 2.1. 2. Iron was 24, TIBC 336, ferritin 94, vitamin B12 of 1800. Folic acid 12.2. Troponin x3 negative. BNP 65. Sodium 135, potassium 3.5. 3. Stool for occult blood was negative. EKG by my review as discussed above. Chest x-ray by my review was negative for infiltrate or edema. IMPRESSION: 1. Chest discomfort, resolved with nitroglycerin. 2. Symptomatic anemia, probably secondary to occult gastrointestinal bleeding. 3. Hypertension. The patient became hypotensive secondary to nitroglycerin as well as significant anemia. 4. Hyperlipidemia. 5. Chronic obstructive pulmonary disease. 6. Ongoing tobacco abuse, the patient was counseled. 7. History of Hodgkin lymphoma. 8. Generalized weakness secondary to symptomatic anemia as well as hypotension. 9. History of paroxysmal atrial tachycardia in the past. 10. Peripheral vascular disease. PLAN: The patient was monitored as 23-hour observation. She received 2 units of PRBC after which her symptoms improved. Her blood pressure has stabilized. I discussed with Dr. Sawant who will repeat hemoglobin in 1 to 2 days in his office. PPIs have been started. It is unclear whether the patient takes PPIs at home. I also scheduled followup with Oncology Service, Dr. Leon, on 02 September 2018, at 2 p.m. I also discussed with Dr. López who recommended to hold aspirin for now until she is evaluated next week at Dr. López's office. She will, however, continue Plavix. Tobacco cessation was extensively emphasized. She understands the above plan of care and is comfortable with getting discharge. She is chest pain free at this time. Her troponins x3 have been negative. EKG showed nonspecific ST-T wave changes. Plan was discussed with the patient in detail. She stated understanding. Job ID: [id number]
== END 2018-08-26 14:56 | disposition home or self-care (01) ==
LOC: ERS 01:13 → INTOOBSV 04:48 → ERHOLD 04:48
PROVIDERS: ADMIT Hospitalist; ATTEND Hospitalist
DX: R07.89 Other chest pain (principal); D64.9 Anemia, unspecified; I10 Essential (primary) hypertension; I95.9 Hypotension, unspecified; E78.5 Hyperlipidemia, unspecified; J44.9 Chronic obstructive pulmonary disease, unspecified; I25.10 Atherosclerotic heart disease of native coronary artery without angina pectoris; I73.9 Peripheral vascular disease, unspecified; K27.9 Peptic ulcer, site unspecified, unspecified as acute or chronic, without hemorrhage or perforation; F17.210 Nicotine dependence, cigarettes, uncomplicated; Z95.1 Presence of aortocoronary bypass graft; Z85.72 Personal history of non-Hodgkin lymphomas; Z95.5 Presence of coronary angioplasty implant and graft; Z79.82 Long term (current) use of aspirin; Z79.02 Long term (current) use of antithrombotics/antiplatelets; Z98.890 Other specified postprocedural states; Z79.899 Other long term (current) drug therapy
CPT/HCPCS: 36430; 71045; 80053; 82274; 82607; 82728; 82746; 83540; 83550; 83880; 84484 ×2; 85007; 85025; 85027; 85046; 85379; 85610; 86850; 86900; 86901; 86920; 93005; 94660; 94760; 96360; 99285; P9016; 36415; 85060

== ENCOUNTER 2019-01-16 06:37 | Observation (INO) | payer MEDICARE, MEDICAID ==
[2019-01-16] MEDS ORDERED: Bacitracin 1 PK ONE (07:13)
[2019-01-16 07:15] LABS: #Basophils 0.1 thou/uL (0.0-0.2); #Eosinphils 0.1 thou/uL (0.0-0.7); #Lymphocytes 1.8 thou/uL (1.20-3.40); #Monocytes 0.6 thou/uL (0.11-0.59); #Neutrophils 3.6 thou/uL (1.40-6.50); %Basophils 1.1 % (0.0-1.0); %Eosinophils 0.9 % (0.0-10.0); %Lymphocytes 29.5 % (21.0-51.0); %Monocytes 10.1 % (0.0-10.0); %Neutrophils 58.4 % (42.0-75.0); Hemoglobin 14.3 g/dL (12.0-16.0); Mean Corpuscular HGB CONC 33.5 g/dL (32.0-36.0); Mean Corpuscular Hemoglobin 30.8 pg (27.0-31.0); Mean Platelet Volume 6.4 fL (7.4-10.4); Platelet Count 252 thou/uL (130-400); RBC Distribution Width 15.6 % (11.5-14.5); Red Blood Cell (RBC) Count 4.64 mill/uL (4.20-5.40); White Blood Cell (WBC) Count 6.2 thou/uL (4.8-10.8)
[2019-01-16 07:34] LABS: ALT (SGPT) 10 U/L (8-55); AST (SGOT) 14 U/L (5-34); Albumin 4.7 g/dL (3.4-4.8); Alkaline Phosphatase 99 U/L (40-150); Anion Gap 14 mmol/L (10-20); BUN (Urea Nitrogen) 9 mg/dL (9.8-20.1); Bilirubin, Total 0.6 mg/dL (0.2-1.2); CK (CPK) 43 U/L (29-168); Calc. Creatinine Clearance 0 mL/min (70-130); Calcium 10.8 mg/dL (7.8-10.44); Carbon Dioxide 27 mmol/L (23-31); Chloride 93 mmol/L (98-107); Estimated GFR-MDRD Greater than 90; Globulin 3.6 g/dL (2.4-3.5); Glucose 96 mg/dL (83-110); Lipase 30 U/L (8-78); Potassium 3.4 mmol/L (3.5-5.1); Protein, Total 8.3 g/dL (6.0-8.3); Sodium 131 mmol/L (136-145)
[2019-01-16] MEDS ORDERED: Adacel (T-DAP) 0.5 ML SYRINGE ONE (07:42)
--- NOTE | 2019-01-16 08:19 | RAD ---
SINGLE VIEW OF THE CHEST: COMPARISON: 08/26/2018. HISTORY: Dizzy spells. FINDINGS: A single view of the chest shows a normal-size cardiomediastinal silhouette. The patient is status p ost CABG. There is no evidence of consolidation, mass, or pleural effusion. IMPRESSION: No evidence of acute cardiopulmonary disease. POS: [facility]
[2019-01-16 08:27] LABS: Bacteria/HPF None Seen HPF (None Seen); Bilirubin Negative (Negative); Blood, Urine Negative (Negative); Clarity Clear (Clear); Glucose, Urine (Dipstick) Normal (Negative); Leukocyte 250 Leu/uL (Negative); Nitrite Negative (Negative); Protein, Urine (Dipstick) Negative (Neg-Trace); RBC/HPF 0-3 HPF (0-3); Squamous Epithelial 0-3 HPF (0-3); Urobilinogen Normal mg/dL (Less than 2); WBC/HPF None Seen HPF (0-3)
--- NOTE | 2019-01-16 08:38 | RAD ---
LEFT ELBOW 4 VIEWS: HISTORY: Elbow injury. FINDINGS: The bones appear demineralized. There are no signs of fracture, dislocation, or joint effusion. IMPRESSION: No evidence of fracture. POS: [facility]
--- NOTE | 2019-01-16 09:25 | CT ---
CT OF BRAIN PERFORMED WITHOUT CONTRAST ENHANCEMENT: HISTORY: Syncopal episode. COMPARISON: 03/02/2018 study. FINDINGS: Some generalized ventricular and sulcal prominence with decreased attenuation of the periventricular white matter consistent with some chronic white matter change. No signs of intracerebral hemorrhage or extraaxial fluid collection. Mastoid air cells and visualized sinuses are clear. IMPRESSION: No acute intracranial abnormality. POS: [facility]
[2019-01-16 10:31] LABS: Troponin I Less than 0.010 ng/mL (< 0.028)
--- NOTE | 2019-01-16 10:57 | HP ---
PRIMARY CARE PHYSICIAN: Kandy Lucas MD CHIEF COMPLAINT: "I passed out." HISTORY OF PRESENT ILLNESS: Ms. Palacios is a very pleasant 73-year-old female, who has a history of hypertension and coronary artery disease. She says that she was in her usual state of health until earlier today. She says she went to sit down and was feeling a little bit dizzy and felt like if she laid her head down, she would feel better. She says she turned her head to the left towards her rollator with the intention of lying her head on it, when the next thing she knew she was on the kitchen floor. She is not sure what had happened. Her says that he witnessed that, but was not able to get to her in time. He says she may have hit her head on the floor. The patient other than feeling a little bit dizzy prior to this episode, had no other complaints. She denies any chest pain. No palpitations. She did admit that last night she felt sick and had vomited and had felt cold off and on, but other than that, she has no other complaints. She does have a history of cerebrovascular disease and she says she sees Dr. Mcgee for this. She says that she has had stents placed in her carotid arteries, and typically, he has been following up with this. She also says she believes she has an echocardiogram scheduled with him soon. She denies any weakness in her upper and lower extremities, and in general, no other complaints. REVIEW OF SYSTEMS: CONSTITUTIONAL: There has been no fevers or chills. No night sweats. No weight loss. HEENT: No headaches, but she has had some dizziness. No visual changes. No sore throat, rhinorrhea, or neck pain. No adenopathy. PULMONARY: No hemoptysis. No cough. No wheezing. CARDIOVASCULAR: She denies any chest pain. No PND. No orthopnea. No lower extremity edema. GASTROINTESTINAL: No abdominal pain. No nausea. No vomiting. No change in bowels. GENITOURINARY: No urinary frequency or hematuria. No hesitancy. NEUROLOGIC: She denies any seizures. No muscle or focal weakness. SKIN AND INTEGUMENT: No skin changes. No rash. MUSCULOSKELETAL: no joint pains or muscle pain ENDOCRINE: No heat or cold intolerance. No polyuria or polydipsia. PAST MEDICAL HISTORY: Significant for coronary artery disease, hypertension, hyperlipidemia, COPD, and Hodgkin disease. PAST SURGICAL HISTORY: She has had a bypass surgery as well as carotid stents placed. ALLERGIES: NO KNOWN DRUG ALLERGIES. SOCIAL HISTORY: She admits to smoking about 10 to 12 cigarettes a day. She has been a smoker for or over 30 years. Denies any alcohol use. She is . Code status is full code. FAMILY HISTORY: Significant for mother had of cancer in her 60s. Father of unknown cause. Her medical power of managing attorney is her . CURRENT MEDICATIONS: Include, 1. Hydrochlorothiazide 12.5 mg daily. 2. Crestor 20 mg daily. 3. Zetia 10 mg daily. 4. Plavix 75 mg daily. 5. Losartan 50 mg daily. PHYSICAL EXAMINATION: GENERAL: She is alert and oriented. She appears to be in no acute distress. However, she is chronically ill in appearance and appears to be underweight for her height. VITAL SIGNS: Blood pressure is 136/68, heart rate is 70, respiratory rate of 18 , temperature is 97.8. HEENT: Her pupils are equal, round, and reactive. Extraocular muscles are intact. She does have some temporal wasting. Throat; there is no erythema, no exudates. NECK: No adenopathy. She did have some bruits on the right. LUNGS: She has some bilateral wheezing as well as rhonchi scattered. No rales. CARDIOVASCULAR: She has a normal S1 and S2. There is no S3 or S4. No murmurs, clicks, or rubs. ABDOMEN: Soft. It is nontender and nondistended. Positive for bowel sounds. No rebound. No guarding. No organomegaly. EXTREMITIES: There is no edema. No calf tenderness. No joint effusions. NEUROLOGIC: Her cranial nerves are intact. Muscle strength is also intact. SKIN AND INTEGUMENT: No skin changes. No rash. LABORATORY RESULTS: Her white blood cell count is 6.2, hemoglobin is 14.3, hematocrit is 42.7, and platelet count is 252. Sodium is 131, potassium is 3.4, chloride is 93, CO2 is 27, BUN of 9, creatinine is 0.6, glucose is 96. Urinalysis is normal. IMAGING STUDIES: Current EKG, it is sinus rhythm. She had some nonspecific ST- wave changes and the rate was 63. This is by my reading. She also had a chest x-ray , the heart size is normal. There is no evidence of any effusion or infiltrate, also by my reading. ASSESSMENT: 1. This is a pleasant 73-year-old female, who presented to the emergency room after suffering a syncopal episode at home. She has a known history of cerebrovascular disease; however, it appears that this is being closely followed by her steel estimator, Dr. López. She also appears quite cachectic and it is possible that she could have be orthostatic as well. We will place her in observation and monitor her for any signs of arrhythmia. Monitor orthostatic blood pressures, and see if we can obtain the records from Dr. López in the a.m. If she has had a recent carotid study and echo, then these do not need to be repeated, and likely, we can call Dr. López's office and see if he can see her fairly soon. Otherwise, if this has not been done within the last few months, then repeat studies maybe warranted. 2. Hypertension. Her blood pressure appears to be controlled. We will continue her usual antihypertensive medications. 3. Chronic obstructive pulmonary disease. This appears to be clinically stable. We will continue home medications as well as p.r.n. DuoNeb's. 4. Tobacco abuse. She continues to smoke. She has been counseled briefly on the need for abstinence and she will be placed on DVT prophylaxis. Job ID: [id number] MTDD
[2019-01-16] MEDS ORDERED: Ondansetron PF 4 MG/2 ML Vial IVP PRN (11:30)
[2019-01-16] MEDS ORDERED: Ondansetron ODT 4 MG TAB PO PRN (11:30)
[2019-01-16] MEDS ORDERED: Acetaminophen 325 MG TAB PO PRN (11:30)
[2019-01-16 11:31] VITALS: BMI 16.9
[2019-01-16] MEDS: Sodium Chloride 0.9% 1,000 ML IV SCH (12:10)
[2019-01-16] MEDS: Nicotine 14 MG PATCH TD SCH (12:41)
[2019-01-16 13:34] LABS: Troponin I 0.018 ng/mL (< 0.028)
[2019-01-16] MEDS ORDERED: Clopidogrel Bisulfate 75 MG TAB PO SCH (14:45)
[2019-01-16] MEDS: Famotidine 20 MG TAB PO SCH (20:19)
[2019-01-16] MEDS ORDERED: Rosuvastatin 20 MG TAB PO SCH (21:00)
[2019-01-17] MEDS: Sodium Chloride 0.9% 1,000 ML IV SCH (00:06)
[2019-01-17 04:49] LABS: #Eosinphils 0.1 thou/uL (0.0-0.7); #Lymphocytes 1.7 thou/uL (1.20-3.40); #Monocytes 0.7 thou/uL (0.11-0.59); #Neutrophils 3.8 thou/uL (1.40-6.50); %Basophils 0.5 % (0.0-1.0); %Eosinophils 1.3 % (0.0-10.0); %Lymphocytes 27.1 % (21.0-51.0); %Monocytes 10.6 % (0.0-10.0); %Neutrophils 60.6 % (42.0-75.0); Hemoglobin 11.7 g/dL (12.0-16.0); Mean Corpuscular HGB CONC 33.1 g/dL (32.0-36.0); Mean Corpuscular Hemoglobin 30.5 pg (27.0-31.0); Mean Platelet Volume 6.5 fL (7.4-10.4); Platelet Count 202 thou/uL (130-400); RBC Distribution Width 15.5 % (11.5-14.5); Red Blood Cell (RBC) Count 3.85 mill/uL (4.20-5.40); White Blood Cell (WBC) Count 6.3 thou/uL (4.8-10.8)
[2019-01-17 05:05] LABS: Anion Gap 11 mmol/L (10-20); BUN (Urea Nitrogen) 11 mg/dL (9.8-20.1); Calc. Creatinine Clearance 64 mL/min (70-130); Calcium 9.7 mg/dL (7.8-10.44); Carbon Dioxide 26 mmol/L (23-31); Chloride 104 mmol/L (98-107); Estimated GFR-MDRD Greater than 90; Glucose 79 mg/dL (83-110); Sodium 138 mmol/L (136-145)
[2019-01-17 05:08] LABS: Potassium 2.8 mmol/L (3.5-5.1)
[2019-01-17] MEDS ORDERED: Potassium Chloride 20 MEQ TAB PO SCH ×2 (05:45→08:00)
[2019-01-17] MEDS: Famotidine 20 MG TAB PO SCH (08:58)
[2019-01-17] MEDS ORDERED: Losartan 25 MG TAB PO SCH (09:00)
[2019-01-17] MEDS ORDERED: Ferrous Sulfate 325 MG TAB PO SCH (09:00)
[2019-01-17] MEDS ORDERED: Enoxaparin Sodium 40 MG/0.4 ML SYRINGE SC SCH (09:00)
[2019-01-17] MEDS ORDERED: Ezetimibe 10 MG TAB PO SCH (09:00)
[2019-01-17] MEDS ORDERED: Clopidogrel Bisulfate 75 MG TAB PO SCH ×2 (09:00)
--- NOTE | 2019-01-17 09:38 | ULT ---
Carotid arterial Doppler ultrasound: 01/17/2019 COMPARISON: None HISTORY: Syncope TECHNIQUE: Multiplanar grayscale sonographic imaging of the arterial structures of the neck obtained with color flow and spectral analysis FINDINGS: There is eccentric increased echogenicity suggesting arterial stent within the right common carotid artery. Right common carotid artery is patent and demonstrates normal arterial waveform. Right vertebral artery is patent and demonstrates antegrade blood flow. Right external carotid artery is difficult to visualize and may be occluded. Right internal carotid artery is patent and demonstrates a normal waveform. There is extensive plaque noted within the left common carotid artery. Left common carotid artery shane ears occluded proximally with minimal blood flow in the mid and distal left common carotid artery region. Left vertebral artery is patent and demonstrates antegrade blood flow. Left internal carotid artery appears patent as does left external carotid artery. Peak systolic velocity (centimeters per second) is 128 within right common carotid artery, 153 within the right internal carotid artery, 26 within left common carotid artery, and 54 within left internal carotid artery. IMPRESSION: Findings suggesting proximal left common carotid artery occlusion with distal blood flow as above. Elevated velocity within the right internal carotid artery suggests stenosis in the 50-69% range. Further assessment via CT angiogram of the neck is suggested.
--- NOTE | 2019-01-17 11:44 | DIS ---
DATE OF ADMISSION: 01/16/2019 DATE OF DISCHARGE: 01/17/2019 DISPOSITION: Discharged home. PRIMARY CARE PROVIDER: Dr. Lucas. FINAL DIAGNOSES: 1. Syncope and collapse. 2. Hypertension. 3. Coronary artery disease. 4. Tobacco abuse. 5. History of Hodgkin disease. 6. Chronic obstructive pulmonary disease. DISCHARGE MEDICATIONS: Same as her home medicines, 1. Losartan 50 mg a day. 2. Hydrochlorothiazide 12.5 mg a day. 3. Ferrous sulfate 325 mg a day. 4. Crestor 20 mg a day. 5. Zetia 10 mg a day. 6. Plavix 75 mg a day. 7. K-Dur 20 mEq p.o. one daily. ALLERGIES: NO KNOWN ALLERGIES. DIET: Heart healthy. CODE STATUS: Full. PENDING AT TIME OF DISCHARGE: Nothing. HOSPITAL COURSE: The patient with a syncopal episode as an [facility] Her carotid Doppler shows a 50% to 70% left common carotid artery occlusion. She states that this is well known to her Dr. López. Dr. López follows her up with annual carotid ultrasounds. Her laboratory, CBC was unrevealing. Comprehensive metabolic profile showed a sodium 131, followup 138; creatinine 0.6, followup 0.57. The patient is seen and examined today, states she feels well. She is being discharged for followup. Her potassium is noted to be low. She has been asked to see Dr. Lucas in a week for followup. She will need her lytes checked at that time. She has been asked to continue her routine follow up with Dr. López about her carotid stenosis. Job ID: [id number]
[2019-01-17] MEDS: Nicotine 14 MG PATCH TD SCH (12:00)
[2019-01-17 12:06] VITALS: BP 131/60; TEMP 98.3
== END 2019-01-17 12:38 | disposition home or self-care (01) ==
LOC: ERS 06:37 → ERHOLD 09:13 → 2SW 11:20
PROVIDERS: ADMIT Internal Medicine; ATTEND Internal Medicine
DX: R55 Syncope and collapse (principal); I10 Essential (primary) hypertension; I25.10 Atherosclerotic heart disease of native coronary artery without angina pectoris; E78.5 Hyperlipidemia, unspecified; J44.9 Chronic obstructive pulmonary disease, unspecified; I71.2 Thoracic aortic aneurysm, without rupture; F17.210 Nicotine dependence, cigarettes, uncomplicated; Z79.899 Other long term (current) drug therapy; Z95.1 Presence of aortocoronary bypass graft; Z95.5 Presence of coronary angioplasty implant and graft
CPT/HCPCS: 70450; 71045; 73080; 80048; 80053; 82550; 83690; 83735; 84484 ×2; 85025 ×2; 90471; 90715; 93005; 93880; 96360; 96361 ×2; 96372; 99285; G0378 ×3; 36415; 81003; 81015; J1650

== ENCOUNTER 2021-05-03 01:50 | Inpatient (IN) | payer MEDICARE, MEDICAID ==
[2021-05-03 02:50] LABS: #Basophils 0.2 thou/uL (0.0-0.2); #Lymphocytes 1.4 thou/uL (1.20-3.40); #Monocytes 0.8 thou/uL (0.11-0.59); #Neutrophils 7.8 thou/uL (1.40-6.50); %Basophils 1.7 % (0.0-1.0); %Eosinophils 0.4 % (0.0-10.0); %Lymphocytes 13.5 % (21.0-51.0); %Monocytes 7.9 % (0.0-10.0); %Neutrophils 76.6 % (42.0-75.0); Hemoglobin 14.1 g/dL (12.0-16.0); Mean Corpuscular HGB CONC 35.4 g/dL (32.0-36.0); Mean Platelet Volume 6.2 fL (7.4-10.4); Platelet Count 231 thou/uL (130-400); RBC Distribution Width 11.5 % (11.5-14.5); Red Blood Cell (RBC) Count 3.91 mill/uL (4.20-5.40); White Blood Cell (WBC) Count 10.2 thou/uL (4.8-10.8)
[2021-05-03] MEDS ORDERED: Ondansetron PF 4 MG/2 ML Vial ONE ×2 (02:59→23:00)
[2021-05-03] MEDS ORDERED: Fentanyl 100 MCG/2 ML VIAL ONE (02:59)
[2021-05-03 03:08] LABS: ALT (SGPT) 15 U/L (8-55); AST (SGOT) 17 U/L (5-34); Albumin 4.2 g/dL (3.4-4.8); Alkaline Phosphatase 82 U/L (40-110); Anion Gap 13 mmol/L (10-20); BUN (Urea Nitrogen) 14 mg/dL (9.8-20.1); Bilirubin, Total 0.5 mg/dL (0.2-1.2); Calc. Creatinine Clearance 0 mL/min (70-130); Carbon Dioxide 33 mmol/L (23-31); Chloride 87 mmol/L (98-107); Globulin 3.2 g/dL (2.4-3.5); Glucose 168 mg/dL (83-110); Lipase 31 U/L (8-78); Protein, Total 7.4 g/dL (5.8-8.1); Sodium 129 mmol/L (136-145)
[2021-05-03] MEDS ORDERED: Morphine 4 MG/ML VIAL ONE (05:34)
[2021-05-03] MEDS ORDERED: Ondansetron PF 4 MG/2 ML Vial IVP PRN (08:43)
[2021-05-03] MEDS ORDERED: Acetaminophen 650 MG Suppository PR PRN (08:43)
[2021-05-03] MEDS ORDERED: Morphine 4 MG/ML VIAL SLOW IVP PRN ×3 (08:45→23:32)
[2021-05-03] MEDS ORDERED: Nicotine 14 MG PATCH TD PRN (08:45)
[2021-05-03] MEDS ORDERED: Morphine 2 MG/ML VIAL SLOW IVP PRN (08:45)
[2021-05-03] MEDS ORDERED: hydrALAZINE 20 MG/ML VIAL SLOW IVP PRN (08:45)
[2021-05-03] MEDS ORDERED: D5 1/2 NS w/20 mEq KCL 1,000 ML IV SCH (08:45)
[2021-05-03] MEDS: Sodium Chloride 0.9% 1,000 ML IV SCH ×2 (10:28→22:11)
[2021-05-03] MEDS: Famotidine/PF 20 mg/2ml Vial SLOW IVP SCH ×2 (11:20→20:58)
[2021-05-03] MEDS: Morphine 4 MG/ML VIAL SLOW IVP PRN ×3 (11:20→22:05)
[2021-05-03] MEDS ORDERED: Iopamidol-370 76% 500 ML 1 ML ONE (11:56)
[2021-05-03] MEDS ORDERED: MD-Gastroview 120 ML BOT ONE (12:19)
[2021-05-03] MEDS ORDERED: Metoclopramide HCl 10 MG/2 ML VIAL IVP PRN (16:25)
[2021-05-03 16:42] LABS: Anion Gap 14 mmol/L (10-20); BUN (Urea Nitrogen) 11 mg/dL (9.8-20.1); Calc. Creatinine Clearance 46 mL/min (70-130); Calcium 11.1 mg/dL (7.8-10.44); Carbon Dioxide 33 mmol/L (23-31); Chloride 90 mmol/L (98-107); Glucose 108 mg/dL (83-110); Potassium 3.7 mmol/L (3.5-5.1); Sodium 133 mmol/L (136-145)
[2021-05-03] MEDS: Mometasone 200 MCG/Formoterol 5 MCG 120 PUFF INHALER INH SCH (18:28)
[2021-05-03] MEDS ORDERED: cefOXitin 2 GM in Sodium Chloride 0.9% 100 ML IVPB SCH (21:30)
[2021-05-03] MEDS ORDERED: Fentanyl 250 MCG/5 ML VIAL ONE (22:06)
[2021-05-03] MEDS ORDERED: Phenylephrine 10 MG/ML VIAL ONE (22:07)
[2021-05-03] MEDS ORDERED: ePHEDrine Sulfate 50 MG/10 ML VIAL ONE (22:07)
[2021-05-03] MEDS ORDERED: Lidocaine 2% Jelly 5 ML TUBE ONE (22:07)
[2021-05-03] MEDS ORDERED: ceFOXitin 1 GM VIAL ONE (22:32)
[2021-05-03] MEDS ORDERED: Sodium Chloride 0.9% 30 ML ONE (22:50)
[2021-05-03] MEDS ORDERED: Dexamethasone 20 MG/5 ML VIAL ONE (23:00)
[2021-05-03] MEDS ORDERED: Lidocaine 1% PF 5 ML VIAL ONE (23:00)
[2021-05-03] MEDS ORDERED: PROPOFOL 200 MG/20 ML VIAL ONE (23:00)
[2021-05-03] MEDS ORDERED: Succinylcholine 200 MG/10 ml SYRINGE FS ONE (23:00)
[2021-05-03] MEDS ORDERED: Promethazine HCl 25 MG/ML VIAL IVPB PRN (23:17)
[2021-05-03] MEDS ORDERED: Ondansetron HCl/PF 4 MG/2 ML Vial IVP PRN (23:17)
[2021-05-03] MEDS ORDERED: Promethazine HCl 25 MG/ML VIAL IM PRN (23:17)
[2021-05-03] MEDS ORDERED: Meperidine HCl/PF 25 MG/ML VIAL SLOW IVP PRN (23:17)
[2021-05-03] MEDS ORDERED: Ketorolac Tromethamine 30 MG/ML VIAL IVP PRN (23:30)
[2021-05-03] MEDS ORDERED: Ketorolac Tromethamine 30 MG/ML VIAL IVP SCH (23:45)
[2021-05-04] MEDS ORDERED: Ondansetron HCl/PF 4 MG/2 ML Vial IVP PRN (00:01)
[2021-05-04] MEDS ORDERED: PACU-Morphine 4MG/ML VIAL SLOW IVP PRN (00:01)
[2021-05-04] MEDS ORDERED: Fentanyl 100 MCG/2 ML VIAL ONE (00:09)
[2021-05-04] MEDS: D5 0.9% NS w/ 20 mEq KCl 1,000 ML IV SCH ×2 (01:15→08:16)
[2021-05-04 05:47] LABS: #Lymphocytes 0.4 thou/uL (1.20-3.40); #Monocytes 0.6 thou/uL (0.11-0.59); #Neutrophils 8.5 thou/uL (1.40-6.50); %Basophils 0.1 % (0.0-1.0); %Eosinophils 0.1 % (0.0-10.0); %Lymphocytes 4.4 % (21.0-51.0); %Monocytes 6.5 % (0.0-10.0); %Neutrophils 89.1 % (42.0-75.0); Mean Corpuscular HGB CONC 33.9 g/dL (32.0-36.0); Mean Platelet Volume 6.4 fL (7.4-10.4); Platelet Count 188 thou/uL (130-400); RBC Distribution Width 11.6 % (11.5-14.5); Red Blood Cell (RBC) Count 3.71 mill/uL (4.20-5.40); White Blood Cell (WBC) Count 9.5 thou/uL (4.8-10.8)
[2021-05-04 06:11] LABS: ALT (SGPT) 10 U/L (8-55); AST (SGOT) 12 U/L (5-34); Albumin 3.4 g/dL (3.4-4.8); Alkaline Phosphatase 57 U/L (40-110); Anion Gap 13 mmol/L (10-20); BUN (Urea Nitrogen) 16 mg/dL (9.8-20.1); Bilirubin, Total 0.3 mg/dL (0.2-1.2); Calc. Creatinine Clearance 45 mL/min (70-130); Calcium 9.4 mg/dL (7.8-10.44); Carbon Dioxide 29 mmol/L (23-31); Chloride 102 mmol/L (98-107); Globulin 2.7 g/dL (2.4-3.5); Glucose 220 mg/dL (83-110); Potassium 3.5 mmol/L (3.5-5.1); Protein, Total 6.1 g/dL (5.8-8.1); Sodium 140 mmol/L (136-145)
[2021-05-04] MEDS: Mometasone 200 MCG/Formoterol 5 MCG 120 PUFF INHALER INH SCH ×2 (07:26→19:03)
[2021-05-04] MEDS: Famotidine/PF 20 mg/2ml Vial SLOW IVP SCH (08:17)
[2021-05-04] MEDS: Enoxaparin Sodium 40 MG/0.4 ML SYRINGE SC SCH (08:18)
[2021-05-04] MEDS ORDERED: FLU VACC QS2021-22(65YR UP)/PF 240 MCG/0.7 ML SYRINGE IM ONE (09:00)
[2021-05-04] MEDS ORDERED: Ibuprofen 200 MG TAB PO PRN (10:18)
[2021-05-04] MEDS ORDERED: traMADol HCl 50 MG TAB PO PRN (10:18)
[2021-05-04 11:09] VITALS: BMI 16.9
[2021-05-04] MEDS: Acetaminophen 500 MG TAB PO SCH ×2 (11:39→18:11)
[2021-05-05] MEDS: Acetaminophen 500 MG TAB PO SCH ×3 (01:53→11:39)
[2021-05-05] MEDS: Mometasone 200 MCG/Formoterol 5 MCG 120 PUFF INHALER INH SCH (07:36)
[2021-05-05] MEDS ORDERED: Polyethylene Glycol 3350 17 GM Packet PO SCH (09:00)
[2021-05-05] MEDS: Enoxaparin Sodium 40 MG/0.4 ML SYRINGE SC SCH (10:45)
[2021-05-05 14:26] VITALS: BP 98/64; TEMP 98.1
== END 2021-05-05 15:07 | disposition home or self-care (01) | DRG 336 ==
LOC: ERS 01:50 → SUATTDRO 01:50 → T4-A 06:12
PROVIDERS: ADMIT Family Medicine; ATTEND Family Medicine
PROC: 0DNW0ZZ Release Peritoneum, Open Approach (ICD-10-PCS; principal; 2021-05-03)
PROC: 02HV33Z Insertion of Infusion Device into Superior Vena Cava, Percutaneous Approach (ICD-10-PCS; 2021-05-03)
PROC: 0D9670Z Drainage of Stomach with Drainage Device, Via Natural or Artificial Opening (ICD-10-PCS; 2021-05-03)
DX: K56.52 Intestinal adhesions [bands] with complete obstruction (principal); E87.1 Hypo-osmolality and hyponatremia; K50.90 Crohn's disease, unspecified, without complications; J98.11 Atelectasis; E78.5 Hyperlipidemia, unspecified; J44.9 Chronic obstructive pulmonary disease, unspecified; F17.210 Nicotine dependence, cigarettes, uncomplicated; I95.9 Hypotension, unspecified; E86.0 Dehydration; E87.8 Other disorders of electrolyte and fluid balance, not elsewhere classified; R00.1 Bradycardia, unspecified; I73.9 Peripheral vascular disease, unspecified; D64.9 Anemia, unspecified; I25.708 Atherosclerosis of coronary artery bypass graft(s), unspecified, with other forms of angina pectoris; I44.0 Atrioventricular block, first degree; Z95.1 Presence of aortocoronary bypass graft; Z85.72 Personal history of non-Hodgkin lymphomas; Z79.899 Other long term (current) drug therapy
CPT/HCPCS: 36415; 71045; 74022; 74177; 74250; 80053; 83605; 83690; 83880; 83970; 84484; 85025; 93005; 94664; 96374; 96375; C1751; J0694; J1100; J1650; J1885; J2270; J2370; J2405; J2704; J2765; J3010; J3480; J7050; Q9963; Q9967; S0028

== ENCOUNTER 2021-05-21 13:14 | Outpatient (CLI) | payer MEDICARE, MEDICAID | END 2021-05-21 13:15 | disposition home or self-care (01) | LOC: BICRAD 13:14 | PROVIDERS: ATTEND Specialist | DX: I73.9 Peripheral vascular disease, unspecified (principal) ==

== ENCOUNTER 2021-08-09 13:55 | Emergency (ER) | payer MEDICARE, OTHER ==
[2021-08-09] MEDS ORDERED: traMADol HCl 50 MG TAB ONE (14:55)
[2021-08-09] MEDS ORDERED: Bacitracin 1 PK ONE (14:56)
== END 2021-08-09 16:34 | disposition home or self-care (01) ==
LOC: ERS 13:55
DX: L03.115 Cellulitis of right lower limb (principal); E78.5 Hyperlipidemia, unspecified; J44.9 Chronic obstructive pulmonary disease, unspecified; I95.9 Hypotension, unspecified; F17.210 Nicotine dependence, cigarettes, uncomplicated

== ENCOUNTER 2021-10-06 09:45 | Emergency (ER) | payer MEDICARE, OTHER, MEDICAID ==
[2021-10-06 10:52] LABS: #Lymphocytes 0.5 thou/uL (1.20-3.40); #Monocytes 0.2 thou/uL (0.11-0.59); #Neutrophils 2.2 thou/uL (1.40-6.50); %Eosinophils 0.3 % (0.0-10.0); %Lymphocytes 16.4 % (21.0-51.0); %Monocytes 7.8 % (0.0-10.0); %Neutrophils 75.5 % (42.0-75.0); Hemoglobin 12.2 g/dL (12.0-16.0); Mean Corpuscular HGB CONC 32.6 g/dL (32.0-36.0); Mean Corpuscular Hemoglobin 40.2 pg (27.0-31.0); Mean Platelet Volume 6.6 fL (7.4-10.4); Platelet Count 130 thou/uL (130-400); RBC Distribution Width 14.2 % (11.5-14.5); Red Blood Cell (RBC) Count 3.04 mill/uL (4.20-5.40); White Blood Cell (WBC) Count 2.9 thou/uL (4.8-10.8)
[2021-10-06 11:04] LABS: MDiff Complete? YES; Macrocytosis MODERATE=16-30 cells (100X) (0-5/hpf); Ovalocytes SLIGHT = 2-5 cells (100X) (0-1/hpf); Platelet Morphology Comment Appears Adequate; Polychromasia SLIGHT = 2-3 cells (100X) (0-2/hpf)
[2021-10-06 11:05] LABS: ALT (SGPT) 12 U/L (8-55); AST (SGOT) 22 U/L (5-34); Albumin 3.7 g/dL (3.4-4.8); Alkaline Phosphatase 84 U/L (40-110); Anion Gap 16 mmol/L (10-20); BUN (Urea Nitrogen) 10 mg/dL (9.8-20.1); Bilirubin, Total 0.4 mg/dL (0.2-1.2); Calc. Creatinine Clearance 0 mL/min (70-130); Calcium 8.9 mg/dL (7.8-10.44); Carbon Dioxide 18 mmol/L (23-31); Chloride 100 mmol/L (98-107); Globulin 3.1 g/dL (2.4-3.5); Glucose 76 mg/dL (83-110); Potassium 4.4 mmol/L (3.5-5.1); Protein, Total 6.8 g/dL (5.8-8.1); Sodium 130 mmol/L (136-145)
== END 2021-10-06 12:23 | disposition home or self-care (01) ==
LOC: ERS 09:45
DX: S80.922A Unspecified superficial injury of left lower leg, initial encounter (principal); I87.8 Other specified disorders of veins; L03.116 Cellulitis of left lower limb; E78.5 Hyperlipidemia, unspecified; J44.9 Chronic obstructive pulmonary disease, unspecified; F17.210 Nicotine dependence, cigarettes, uncomplicated; Z79.899 Other long term (current) drug therapy; Z79.01 Long term (current) use of anticoagulants
CPT/HCPCS: 36415; 80053; 85025; 85652; 86140